=== PATIENT | female | born 1970 | race Caucasian/White ===

== ENCOUNTER 2018-03-30 05:46 | Day surgery (SDC) | payer OTHER ==
[~2018-03-30 05:46] MED LIST: CIPRO500 MG PO; FLAGYL500MG PO; INTESTINEX1 CAP PO; LEVSIN/SL0.125 MG PO; LEVSIN/SL0.125 MG SL; PEPCID40 MG PO; ZANTAC150 M3 PO; ZOFRAN4 MG PO
== END 2018-03-30 09:10 | disposition home or self-care (01) ==
LOC: AMB-ENDOS 05:46
DX: R19.4 Change in bowel habit (principal); K64.8 Other hemorrhoids

== ENCOUNTER 2018-10-24 18:56 | Emergency (ER) | payer OTHER ==
[~2018-10-24] VITALS: Ht 160 cm; Wt 62.6 kg
[2018-10-24] MEDS ORDERED: TAMOXIFEN CITRA20 MG (19:06)
== END 2018-10-25 00:30 | disposition home or self-care (01) ==
LOC: ER 18:56
DX: J45.998 Other asthma (principal)